=== PATIENT | female | born 1995 | race Hispanic/Latino ===

== ENCOUNTER 2020-10-08 10:24 | Outpatient (CLI) | payer OTHER ==
[2020-10-08 11:14] VITALS: BP 118/75
== END 2020-10-08 12:08 | disposition home or self-care (01) ==
LOC: TRG 10:24 → APU 10:25 → TRG 12:08
PROVIDERS: ATTEND Obstetrics & Gynecology
DX: Z34.92 Encounter for supervision of normal pregnancy, unspecified, second trimester (principal); Z3A.26 26 weeks gestation of pregnancy
CPT/HCPCS: 59025

== ENCOUNTER 2020-10-08 12:22 | Emergency (ER) | payer OTHER ==
[2020-10-08 13:12] VITALS: BP 117/74
--- NOTE | 2020-10-08 13:37 | XRay Report ---
XR chest routine 2V INDICATION / CLINICAL INFORMATION: COUGH. COMPARISON: None available. FINDINGS: SUPPORT DEVICES: None. HEART /PULMONARY VASCULATURE: No significant abnormality. LUNGS / PLEURA: No significant pulmonary or pleural abnormality. No pneumothorax. ADDITIONAL FINDINGS: No significant additional findings. IMPRESSION: 1. No acute findings. Signer Name: Eliot Carlson MD Signed: 10/08/2020 1:32 PM Workstation Name: [id number]
--- NOTE | 2020-10-08 16:04 | Emergency Department Report ---
- General Chief Complaint: Chest Pain Stated Complaint: 27WKS /COVID SX Time Seen by Provider: 10/08/20 15:37 Source: patient Mode of arrival: Ambulatory Limitations: No Limitations - History of Present Illness Initial Comments: Patient is a 24-year-old female presents emergency room complaints of URI symptoms that began 2 days ago. She has associated cough, chest congestion, loss of sense of smell and taste, occasional shortness of breath, chest soreness. She has not been vaccinated for COVID-19. She has not been tested for COVID-19 since becoming sick. She states that she is also had intermittent nausea and vomiting. She denies any diarrhea, leg swelling, pleuritic pain, abdominal pain, vaginal bleeding. She is currently 27 weeks and goes to [employer] [employer] [facility] [employer]. No past medical history. No allergies to medications. She denies any known sick contacts or recent travel. She states that she is a never smoker. - Related Data Home Medications Medication Instructions Recorded Confirmed Last Taken One Daily Tablet 1 tab PO DAILY 10/08/20 10/08/20 3 Days Ago ~10/05/20 1 tab Previous Rx's Medication Instructions Recorded Last Taken Type Metoclopramide [Reglan] 10 mg PO Q8HR PRN #12 tab 10/08/20 Unknown Rx Allergies Allergy/AdvReac Type Severity Reaction Status Date / Time No Known Allergies Allergy Verified 10/08/20 12:58 ED Review of Systems ROS: Stated complaint: 27WKS /COVID SX Other details as noted in HPI Comment: All other systems reviewed and negative ED Past Medical Hx - Past Medical History Hx Hypertension: No Hx Diabetes: No Hx Deep Vein Thrombosis: No Hx Renal Disease: No Hx Sickle Cell Disease: No Hx Seizures: No Hx Asthma: No Hx HIV: No - Surgical History Additional Surgical History: ARM - Social History Smoking Status: Never Smoker Substance Use Type: None - Medications Home Medications: Home Medications Medication Instructions Recorded Confirmed Last Taken Type Metoclopramide [Reglan] 10 mg PO Q8HR PRN #12 tab 10/08/20 Unknown Rx One Daily Tablet 1 tab PO DAILY 10/08/20 10/08/20 3 Days Ago History ~10/05/20 1 tab ED Physical Exam - General Limitations: No Limitations General appearance: alert, in no apparent distress - Head Head exam: Present: atraumatic, normocephalic - Eye Eye exam: Present: normal appearance - ENT ENT exam: Present: normal orophraynx, mucous membranes moist, TM's normal bilaterally, normal external ear exam - Respiratory Respiratory exam: Present: normal lung sounds bilaterally. Absent: respiratory distress, wheezes, rales, rhonchi, stridor, chest wall tenderness, accessory muscle use, decreased breath sounds, prolonged expiratory - Cardiovascular Cardiovascular Exam: Present: regular rate, normal rhythm, normal heart sounds. Absent: systolic murmur, diastolic murmur, rubs, gallop - Neurological Exam Neurological exam: Present: alert, oriented X3 - Psychiatric Psychiatric exam: Present: normal affect, normal mood - Skin Skin exam: Present: warm, dry, intact ED Course Vital Signs 10/08/20 10/08/20 13:03 13:18 Temperature 98.8 F Pulse Rate 97 H Respiratory 18 Rate Blood Pressure 117/74 O2 Sat by Pulse 100 Oximetry ED Medical Decision Making - Lab Data Vital Signs 10/08/20 10/08/20 13:03 13:18 Temperature 98.8 F Pulse Rate 97 H Respiratory 18 Rate Blood Pressure 117/74 O2 Sat by Pulse 100 Oximetry - Radiology Data Radiology results: report reviewed Ordering Physician: REBA LAKE Date of Service: 10/08/20 Procedure(s): XR chest routine 2V Accession Number(s): [id number] cc: REBA LAKE Fluoro Time In Minutes: XR chest routine 2V INDICATION / CLINICAL INFORMATION: COUGH. COMPARISON: None available. FINDINGS: SUPPORT DEVICES: None. HEART /PULMONARY VASCULATURE: No significant abnormality. LUNGS / PLEURA: No significant pulmonary or pleural abnormality. No pneumothorax. ADDITIONAL FINDINGS: No significant additional findings. IMPRESSION: 1. No acute findings. Signer Name: Jessica Solomon MD Signed: 10/08/2020 1:32 PM Workstation Name: [id number] Transcribed By: JS Dictated By: JESSICA SOLOMON MD Electronically Authenticated By: JESSICA SOLOMON MD Signed Date/Time: 10/08/201331 DD/ 31 TD/TT: - Medical Decision Making Patient is a 24-year-old female presents emergency room complaints of URI symptoms that began 2 days ago. She has associated cough, chest congestion, loss of sense of smell and taste, occasional shortness of breath, chest soreness. She has not been vaccinated for COVID-19. She has not been tested for COVID-19 since becoming sick. She states that she is also had intermittent nausea and vomiting. She denies any diarrhea, leg swelling, pleuritic pain, abdominal pain, vaginal bleeding. She is currently 27 weeks and goes to [employer] [employer]. No past medical history. No allergies to medications. She denies any known sick contacts or recent travel. She states that she is a never smoker. Vitals are normal. No abnormality on physical examination as documented in chart. Chest x-ray: 1. No acute findings. I personally ambulated patient in the emergency department for 2 minutes and she maintained oxygen saturation of 99 to 100% on room air with no difficulty. Symptoms likely related to viral URI. Given that patient is presenting with the symptoms during COVID-19 pandemic, discussed the possibility of COVID-19 with patient, discussed return precautions, discussed outpatient testing, advised to self quarantine if testing was positive. Patient has no clinical signs of dehydration, she is able to tolerate p.o. intake. Patient does not meet hospital criteria for admission at this time. Advised patient Please increase your fluid intake over the next several days. May take Tylenol as needed for fever or body aches. may use a vaporizer/humidifier. Follow-up with a primary care doctor for reexamination. Return to emergency room immediately for any new or worsening symptoms including but not limited to difficulty breathing, shortness of breath, severe chest pain, unable to tolerate by mouth intake, etc. recommend for you to get a outpatient COVID-19 swab and self quarantine as ne cessary 10 days from the onset of your symptoms. Critical care attestation.: If time is entered above; I have spent that time in minutes in the direct care of this critically ill patient, excluding procedure time. ED Disposition Clinical Impression: Upper respiratory infection Qualifiers: URI type: unspecified URI Qualified Code(s): J06.9 - Acute upper respiratory infection, unspecified Disposition: HOME / SELF CARE / HOMELESS Is pt being admited?: No Does the pt Need Aspirin: No Condition: Stable Instructions: Viral Respiratory Infection Additional Instructions: Please increase your fluid intake over the next several days. May take Tylenol as needed for fever or body aches. may use a vaporizer/humidifier. Follow-up with a primary care doctor for reexamination. Return to emergency room immediately for any new or worsening symptoms including but not limited to difficulty breathing, shortness of breath, severe chest pain, unable to tolerate by mouth intake, etc. recommend for you to get a outpatient COVID-19 swab and self quarantine as necessary 10 days from the onset of your symptoms. Prescriptions: Metoclopramide [Reglan] 10 mg PO Q8HR PRN #12 tab PRN Reason: nausea/vomiting Referrals: TOVA CHESTER MD [Staff Physician] - 2-3 Days [facility] [Provider Group] - 2-3 Days Forms: Accompanied Note, Work/School Release Form(ED) Time of Disposition: 16:04 Print Language: SERBIAN
== END 2020-10-08 16:30 | disposition home or self-care (01) ==
LOC: ED 12:22
DX: O99.512 Diseases of the respiratory system complicating pregnancy, second trimester (principal); J06.9 Acute upper respiratory infection, unspecified; Z3A.27 27 weeks gestation of pregnancy; R05 Cough; R09.89 Other specified symptoms and signs involving the circulatory and respiratory systems; R43.8 Other disturbances of smell and taste; Z59.0 Homelessness; Z98.890 Other specified postprocedural states
CPT/HCPCS: 71046; 99283

== ENCOUNTER 2020-12-06 16:15 | Outpatient (CLI) | payer OTHER ==
[2020-12-06 16:58] VITALS: BP 109/69
[2020-12-06] MEDS ORDERED: LACTATED RINGERS 500 ML IV ONE (17:56)
[2020-12-06 18:14] LABS: Bilirubin,Urine NEG (Negative); Blood,Urine NEG (Negative); Color,Urine Yellow (Yellow); Mucus,Urine FEW /HPF; Protein,Urine <15 mg/dL mg/dL (Negative); Urobilinogen,Urine < 2.0 mg/dL (<2.0)
[2020-12-06] MEDS ORDERED: TERBUTALINE 1 MG/1 ML INJ SUB-Q ONE (20:44)
[2020-12-06 23:36] LABS: Amphetamine Screen,Urine PRESUMPTIVE NEGATIVE; Benzodiazepines Screen,Urine PRESUMPTIVE NEGATIVE; Cannabinoid Screen,Urine PRESUMPTIVE NEGATIVE; Cocaine Screen,Urine PRESUMPTIVE NEGATIVE; Methadone Screen,Urine PRESUMPTIVE NEGATIVE; Opiate Screen,Urine PRESUMPTIVE NEGATIVE
--- NOTE | 2020-12-07 04:24 | Ultrasound Report ---
ULTRASOUND OBSTETRIC LIMITED ULTRASOUND BIOPHYSICAL PROFILE INDICATION / CLINICAL INFORMATION: ABBY. COMPARISON: None available. FINDINGS: BREATHING MOVEMENT = 2 GROSS BODY MOVEMENT = 2 TONE = 2 QUALITATIVE AMNIOTIC FLUID VOLUME = 2 TOTAL BIOPHYSICAL SCORE = 8/8 AMNIOTIC FLUID INDEX (cm) = 9.6 PRESENTATION: Cephalic. HEART RATE (beats per minute): 131 ADDITIONAL FINDINGS: Placenta posterior fundal grade 1 IMPRESSION: 1. Biophysical Score = 8/8 Signer Name: Rios Kauffman MD Signed: 12/07/2020 4:20 AM Workstation Name: [id number]
== END 2020-12-07 03:30 | disposition home or self-care (01) ==
LOC: TRG 16:15 → APU 16:17 → TRG 12-07 03:30
PROVIDERS: ATTEND Obstetrics & Gynecology
DX: O26.893 Other specified pregnancy related conditions, third trimester (principal); R10.30 Lower abdominal pain, unspecified; Z3A.35 35 weeks gestation of pregnancy
CPT/HCPCS: 36415; 59025; 76815; 76819; 80307; 81001; 84112; 96360; 96372; J3105; J7120